=== PATIENT | male | born 1985 | race Caucasian/White ===

== ENCOUNTER 2023-05-28 12:01 | Inpatient (IN) | payer MEDICAID ==
[~2023-05-28] VITALS: Ht 190.5 cm; Wt 160.2 kg
[~2023-05-28 12:01] MED LIST: AMOCLA875 PO; CIPR500 PO; CLIN300 PO; CYCL10 PO; DIPATR PO; HYDACE5 PO; HYDACE5325 PO; INDO50 PO; LISI20 PO; NAPR250 PO; NAPR500 PO; PREG75; PROM25 PO; RXCYCL10 PO; RXHYDACE PO; RXHYDMOR2 PO; RXTRAM50 PO; Roxicodone5 MG PO; TRAM50 PO
[2023-05-28 12:31] LABS: BASOPHILS ABSOLUTE AUTO 0.03 K/mm3 (0.00-0.23); BASOPHILS PERCENT AUTO 0 % (0-2); EOSINOPHILS ABSOLUTE AUTO 0.15 K/mm3 (0.00-0.68); EOSINOPHILS PERCENT AUTO 2 % (0-6); Hematocrit 42.1 % (37.0-53.0); Hemoglobin 15.1 g/dL (13.5-17.5); IMMATURE GRAN ABSOLUTE AUTO 0.02 K/mm3 (0.00-0.10); IMMATURE GRAN PERCENT AUTO 0 % (0-1); LYMPHOCYTES ABSOLUTE AUTO 2.08 K/mm3 (0.84-5.20); LYMPHOCYTES PERCENT AUTO 28 % (21-46); MONOCYTES ABSOLUTE AUTO 0.42 K/mm3 (0.16-1.47); MONOCYTES PERCENT AUTO 6 % (4-13); Mean Corpuscular HGB 29.5 pg (26.0-34.0); Mean Corpuscular HGB Conc 35.9 g/dL (31.5-36.5); Mean Corpuscular Volume 82 fL (80-100); Mean Platelet Volume 11.4 fL (9.1-12.4); NEUTROPHILS ABSOLUTE AUTO 4.67 K/mm3 (1.96-9.15); NEUTROPHILS PERCENT AUTO 63 % (41-73); Platelet Count 279 K/mm3 (150-400); RDW Coefficient Variation 13.1 % (11.7-14.2); RDW Standard Deviation 39.4 fL (35.1-46.3); Red Blood Cell Count 5.11 M/mm3 (4.30-5.90); White Blood Cell Count 7.37 K/mm3 (4.00-11.30)
[2023-05-28 12:43] LABS: Albumin, Blood 3.7 g/dL (3.4-5.0); Bilirubin, Total 0.9 mg/dL (0.1-1.0); Bun/Creatinine Ratio 9.2 (12.0-20.0); Calcium, Blood 9.4 mg/dL (8.5-10.1); Creatinine, Blood 0.87 mg/dL (0.60-1.20); Globulin, Blood 3.6 g/dL (2.2-4.0); Potassium, Blood 3.5 mmol/L (3.5-5.5); Total Protein, Blood 7.3 g/dL (6.4-8.2)
[2023-05-28 18:00] VITALS: BP 167/95
--- NOTE | 2023-05-28 19:40 | NUR ---
PT ARRIVED TO UNIT AT APROX 1800 FROM ER. PT A/O, INDEPENDENT. C/O STABBING PAIN TO UMBILIBUS AND LOWER ABD, MEDCIATED WITH 1MG DILAUDID. C/O NAUSEA MEDICATED WITH 4MG ZOFRAN. ORDER FROM DR LUCAS FOR LR 125ML/HR. CONTINUE CLEAR LIQUIDS AND ABX.
[2023-05-28 20:56] VITALS: BP 122/85
--- NOTE | 2023-05-29 01:43 | NUR ---
LATE ENTRY. AT 2145 ON 05/28/2023 PT REPORTED FEELING "HOT". SKIN WAS NOT FLUSHED AND PATIENT WAS NOT DIAPHORETIC. CHECKED TEMPERATURE WHICH WAS AFEBRILE. REMOVED BLANKETS, AND PROVIDED PT A FAN. WHEN RECHECKED PT VERBALIZED FEELING "COMFORTABLE" IN REGARDS TO TEMPERATURE.
[2023-05-29 05:17] LABS: BASOPHILS ABSOLUTE AUTO 0.01 K/mm3 (0.00-0.23); BASOPHILS PERCENT AUTO 0 % (0-2); EOSINOPHILS ABSOLUTE AUTO 0.17 K/mm3 (0.00-0.68); EOSINOPHILS PERCENT AUTO 3 % (0-6); Hematocrit 38.4 % (37.0-53.0); Hemoglobin 13.5 g/dL (13.5-17.5); IMMATURE GRAN ABSOLUTE AUTO 0.01 K/mm3 (0.00-0.10); IMMATURE GRAN PERCENT AUTO 0 % (0-1); LYMPHOCYTES PERCENT AUTO 25 % (21-46); MONOCYTES ABSOLUTE AUTO 0.45 K/mm3 (0.16-1.47); MONOCYTES PERCENT AUTO 7 % (4-13); Mean Corpuscular HGB 29.8 pg (26.0-34.0); Mean Corpuscular HGB Conc 35.2 g/dL (31.5-36.5); Mean Corpuscular Volume 85 fL (80-100); Mean Platelet Volume 11.5 fL (9.1-12.4); NEUTROPHILS ABSOLUTE AUTO 4.05 K/mm3 (1.96-9.15); NEUTROPHILS PERCENT AUTO 64 % (41-73); Platelet Count 222 K/mm3 (150-400); RDW Standard Deviation 40.3 fL (35.1-46.3); Red Blood Cell Count 4.53 M/mm3 (4.30-5.90); White Blood Cell Count 6.29 K/mm3 (4.00-11.30)
[2023-05-29 05:25] VITALS: BP 124/66
[2023-05-29 05:37] LABS: Bun/Creatinine Ratio 11.3 (12.0-20.0); Calcium, Blood 8.5 mg/dL (8.5-10.1); Creatinine, Blood 0.98 mg/dL (0.60-1.20); Potassium, Blood 3.5 mmol/L (3.5-5.5)
--- NOTE | 2023-05-29 07:22 | NUR ---
SHIFT SUMMARY NOC. PT WITH NON SURGICAL DIVERTICULITIS. PT A/O X4 AND INDEPENDENT IN THE ROOM. PT VOIDING DARK URINE THIS SHIFT. FLUIDS RUNNING. PT MEDICATED FOR NAUSEA AND ABDOMINAL PAIN WITH SOME RELIEF. ORDER FOR PAIN MEDICATION WAS CHANGED FROM Q4 TO Q2 HOURS, THIS HAS HELPED IMPROVE COMFORT. PT CALLS APPROPRIATLY.
[2023-05-29 07:44] VITALS: BP 129/62
--- NOTE | 2023-05-29 14:08 | NUR ---
DR. LUCAS IN ROOM AT ABOUT 1130, PT OK TO HAVE CLEAR LIQ. WILL CONTINUE WITH PAIN MANAGEMENT AND PLAN OF CARE, SEE EMAR.
[2023-05-29 14:59] VITALS: BP 132/72
--- NOTE | 2023-05-29 16:08 | NUR ---
SUMMARY: PT ADMITTED FOR ACUTE DIVERTICULITIS. A/O, VSS. PT CONTINUES TO HAVE INTERMITTANT NAUSEA, NO EMESIS. PAIN IS CONSTANT AT ABD. MEDICATED PER EMAR. PT REPORTS THAT TORADOL AND DILAUDID HAVE HELPED. PT REPORTS FEELING MORE NAUSEATED AFTER THE IV ANTIBIOTICS START. DR. LANE MADE AWARE. PT UP TO WALK IN THE HALLS X2, INDEPENDENT IN ROOM AND VOIDING. TOLERATING SMALL AMT CLEAR LIQ. NO ACUTE CONCERNS AT THIS TIME
[2023-05-29 20:15] VITALS: BP 134/67
[2023-05-30 02:01] VITALS: BP 113/67
[2023-05-30 04:44] LABS: BASOPHILS ABSOLUTE AUTO 0.02 K/mm3 (0.00-0.23); BASOPHILS PERCENT AUTO 0 % (0-2); EOSINOPHILS ABSOLUTE AUTO 0.22 K/mm3 (0.00-0.68); EOSINOPHILS PERCENT AUTO 5 % (0-6); Hematocrit 36.4 % (37.0-53.0); Hemoglobin 12.7 g/dL (13.5-17.5); IMMATURE GRAN PERCENT AUTO 0 % (0-1); LYMPHOCYTES ABSOLUTE AUTO 1.72 K/mm3 (0.84-5.20); LYMPHOCYTES PERCENT AUTO 36 % (21-46); MONOCYTES PERCENT AUTO 8 % (4-13); Mean Corpuscular HGB 29.5 pg (26.0-34.0); Mean Corpuscular HGB Conc 34.9 g/dL (31.5-36.5); Mean Corpuscular Volume 85 fL (80-100); Mean Platelet Volume 11.5 fL (9.1-12.4); NEUTROPHILS ABSOLUTE AUTO 2.39 K/mm3 (1.96-9.15); NEUTROPHILS PERCENT AUTO 50 % (41-73); Platelet Count 193 K/mm3 (150-400); RDW Coefficient Variation 12.8 % (11.7-14.2); RDW Standard Deviation 39.2 fL (35.1-46.3); Red Blood Cell Count 4.31 M/mm3 (4.30-5.90); White Blood Cell Count 4.75 K/mm3 (4.00-11.30)
[2023-05-30 05:08] LABS: Calcium, Blood 8.6 mg/dL (8.5-10.1); Creatinine, Blood 0.9 mg/dL (0.60-1.20); Potassium, Blood 3.4 mmol/L (3.5-5.5)
--- NOTE | 2023-05-30 06:06 | NUR ---
SHIFT SUMMARY PT HAS RESTED OFF AND ON T/O THE NIGHT. PT STILL HAVING INTERMITTENT NAUSEA AND ONE EPISODE OF EMESIS THIS SHIFT. INTERMITTENT ABD PAIN. PT REPORTS THAT HE IS PASSING GAS, BUT STILL HAS NOT HAD A BM. BOWEL CARE STARTED. PT HAS BEEN INDEPENDENT IN THE ROOM. HE HAS BEEN UP AND AMBULATING IN THE HALLWAY. PT MEDICATED FOR PAIN AND NAUSEA PRN. BED IN LOWEST POSITION, CALL LIGHT WITHIN REACH.
[2023-05-30 07:19] LABS: Phosphorus, Blood 3.4 mg/dL (2.5-4.9)
[2023-05-30 07:24] VITALS: BP 119/75
[2023-05-30 15:01] VITALS: BP 123/71
--- NOTE | 2023-05-30 16:07 | NUR ---
TEMP PT REPORTED CHILLS/FREEZING FEELING. TEMP WAS 99.3. ADMINISTERED TORADOL PER ORDERS FOR PAIN/FEVER. RECHECKED AND TEMPORAL TEMP WAS 100.0. PT REPORTED HAD BM AND PAIN IMPROVED FROM 9 TO 7. REPORTED NO LONGER "FREEZING" OR HAVING CHILLS. NOTIFIED DR LUCAS WHO INSTRUCTED TO GIVE TYLENOL PER ORDERS AND INSTRUCT ON USE OF IS, OOB AND UP TO CHAIR. ADMINISTERED TYLENOL. INSTRUCTED PT ON IS USE, WHICH WAS DEMONSTRATED AND PT VERBALIZED UNDERSTANDING FOR NEED TO BE OOB. INDEPENDENT IN ROOM. PT STATED TOLERATING CLEARS.
--- NOTE | 2023-05-30 17:06 | NUR ---
SUMMARY PT HAD TEMP THIS AFTERNOON. MEDICATED PER ORDERS FOR FEVER. TEMP NOW 99.0. MEDICATED PT PER ORDERS T/O SHIFT FOR PAIN. ALSO MEDICATED ONCE THIS SHIFT FOR NAUSEA. PT REPORTED HAD TWO BMS THIS AFTERNOON. ENCOURAGED PT TO BE OOB AND USE IS; PT DID BOTH. ENCOURAGED PT TO USE IS HOURLY WHILE AWAKE. PT TOLERATING CLEAR LIQUIDS. CALL LIGHT IN REACH.
[2023-05-30 19:20] VITALS: BP 140/72
[2023-05-31 02:48] VITALS: BP 126/63
--- NOTE | 2023-05-31 02:59 | NUR ---
SHIFT SUMMARY PT HAS RESTED OFF AND ON T/O THE LIGHT. PT APPEARS TO HAVE MORE FATIGUE THIS SHIFT. PT REPORTS TO LACTATION NURSE JENNIE THAT THE FEVER HE HAD DURING DAYSHIFT WIPED HIM OUT. PT STILL HAVING INTERMITTENT NAUSEA WITH VOMITTING. ONE EPISODE OF EMESIS THIS SHIFT. ZOFRAN CHANGED FROM Q6HR TO Q4HR TO BETTER TREAT SYMPTOMS. PT REPORTS 5 BOWEL MOVEMENTS SINCE STARTING BOWEL CARE. INTERMITTENT ABD PAIN CONTINUES, PAIN MEDS PER EMAR. BED IN LOWEST POSITION, CALL LIGHT WITHIN REACH.
[2023-05-31 04:14] LABS: BASOPHILS ABSOLUTE AUTO 0.01 K/mm3 (0.00-0.23); BASOPHILS PERCENT AUTO 0 % (0-2); EOSINOPHILS ABSOLUTE AUTO 0.02 K/mm3 (0.00-0.68); EOSINOPHILS PERCENT AUTO 0 % (0-6); Hematocrit 36.3 % (37.0-53.0); Hemoglobin 12.6 g/dL (13.5-17.5); IMMATURE GRAN ABSOLUTE AUTO 0.01 K/mm3 (0.00-0.10); IMMATURE GRAN PERCENT AUTO 0 % (0-1); LYMPHOCYTES PERCENT AUTO 12 % (21-46); MONOCYTES ABSOLUTE AUTO 0.53 K/mm3 (0.16-1.47); MONOCYTES PERCENT AUTO 11 % (4-13); Mean Corpuscular HGB 29.4 pg (26.0-34.0); Mean Corpuscular HGB Conc 34.7 g/dL (31.5-36.5); Mean Corpuscular Volume 85 fL (80-100); Mean Platelet Volume 11.5 fL (9.1-12.4); NEUTROPHILS ABSOLUTE AUTO 3.89 K/mm3 (1.96-9.15); NEUTROPHILS PERCENT AUTO 77 % (41-73); Platelet Count 180 K/mm3 (150-400); RDW Coefficient Variation 12.7 % (11.7-14.2); RDW Standard Deviation 39.4 fL (35.1-46.3); Red Blood Cell Count 4.28 M/mm3 (4.30-5.90); White Blood Cell Count 5.06 K/mm3 (4.00-11.30)
[2023-05-31 04:33] LABS: Albumin, Blood 3.1 g/dL (3.4-5.0); Anion Gap 5 mmol/L (6-16); Blood Urea Nitrogen 8 mg/dL (8-24); Bun/Creatinine Ratio 8.1 (12.0-20.0); CO2, Blood 25 mmol/L (21-32); Calcium, Blood 8.6 mg/dL (8.5-10.1); Chloride, Blood 106 mmol/L (98-108); Creatinine, Blood 0.99 mg/dL (0.60-1.20); Glomerular Filtration Rate 100 (60-); Glucose, Blood 102 mg/dL (70-99); Phosphorus, Blood 2.9 mg/dL (2.5-4.9); Potassium, Blood 3.6 mmol/L (3.5-5.5); Sodium, Blood 136 mmol/L (136-145)
[2023-05-31 07:22] VITALS: BP 130/68
--- NOTE | 2023-05-31 11:15 | NUR ---
STARTED PO CONTRAST.
--- NOTE | 2023-05-31 11:45 | NUR ---
NOTIFIED LOCOMOTIVE OPERATOR HELPER PT COMPLETED CONTRAST. PLAN FOR CT AT 1430.
[2023-05-31 14:42] VITALS: BP 127/66
--- NOTE | 2023-05-31 15:11 | NUR ---
PT TO CT.
--- NOTE | 2023-05-31 15:31 | NUR ---
BACK FROM CT.
--- NOTE | 2023-05-31 17:09 | NUR ---
SUMMARY NO ACUTE CHANGES T/O SHIFT. REPEAT CT PERFORMED THIS AFTERNOON, DR LUCAS DISCUSSED WITH PT. NO NEW ORDERS AT THIS TIME. PT INDEPENT IN ROOM, SHOWERED AND AMBULATED IN [place]. CALL LIGHT IN REACH.
[2023-05-31 19:26] VITALS: BP 137/78
[2023-06-01 03:07] VITALS: BP 117/59
--- NOTE | 2023-06-01 06:10 | NUR ---
SUMMARY PT TOLERATING SOME CLEAR LIQ.AMB IN HALLS TONIGHT.
[2023-06-01 10:00] VITALS: BP 127/83
[2023-06-01 15:55] VITALS: BP 118/61
--- NOTE | 2023-06-01 19:32 | NUR ---
PT HAS BEEN STABLE THIS SHIFT. PT CONT TO REPORT HIGH LEVELS OF PAIN. MEDICATING WITH NORCO AND TORODOL NEEDED. TOLERATING SMALL AMTS FULL LIQUIDS. NAUSEA X2 THIS SHIFT, ZOFRAN EFFECTIVE. NO EMESIS. PT VOIDING WELL. INDEP IN ROOM. HAVING DIARRHEA. IV FLUIDS INFUSING PER ORDERS. USES CALL LIGHT APPROPRIATELY NEEDED.
[2023-06-01 20:00] VITALS: BP 132/75
[2023-06-02 04:01] VITALS: BP 127/77
--- NOTE | 2023-06-02 04:31 | NUR ---
SHIFT SUMMARY NO ACUTE CHANGES THIS SHIFT. PT RESTED WELL. ABD REMAINS FIRM AND DISTENDED. PT REPORTS FLATUS AND LOOSE STOOLS. 1 NORCO/TYLENOL/TORADOL FOR PAIN MANAGEMENT. IVF + ABX PER ORDERS. NAUSEA X1 WITH NO EMESIS. INDEP TO RESTROOM. CALL LIGHT WITHIN REACH.
[2023-06-02 08:02] VITALS: BP 133/77
--- NOTE | 2023-06-02 15:00 | NUR ---
SHIFT SUMMARY: DIVERTICULITIS PATIENT IS A&OX4. VS ARE WNL AND IS ON RA. PAIN IS MANAGED WITH PO NORCO AND NAPROXEN. PATIENT STATED THIS MORNING "I'M FEELING A LOT BETTER TODAY". HIS IV ABX WERE SWITCHED TO PO AND IS TOLERATING THEM WELL. HE IS INDEP. IN THE ROOM. HE IS TOLERATING HIS DIET AND HAS DENIED NAUSEA OR VOMITING THROUGHOUT THIS SHIFT. HE IS VOIDING AND HAVING BMS. PATIENT IS LAYING IN BED ASLEEP WITH CALL LIGHT IN REACH.
[2023-06-02 16:12] VITALS: BP 131/69
[2023-06-02 19:06] VITALS: BP 134/73
--- NOTE | 2023-06-02 20:48 | NUR ---
EMAR PT GIVEN 1 NORCO, WITH 8, AUGMENTIN AND PROBIOTIC PILL THIS EVENING. [facility] AT THIS TIME
[2023-06-03 04:19] VITALS: BP 127/80
--- NOTE | 2023-06-03 04:47 | NUR ---
SHIFT [facility] VSS. PT SLEPT WELL T/O THE NIGHT. MEDICATED FOR PAIN WITH NRCO AND NAPROXEN WITH TOLLERABLE RELIEF. PT TOLLERATING PO INTAKE W/O N/V. PT REPORTS PASSING FLATTUS BUT NO STOOL TONIGHT. VOIDING W/O DIFFICULTY. NO ACUTE EVENTS NOTED. PLAN TO D/C TODAY.
[2023-06-03 07:24] VITALS: BP 133/87
[2023-06-03] MEDS ORDERED: AMOCLA875 PO (09:21)
[2023-06-03] MEDS ORDERED: NAPR500 PO (09:22)
[2023-06-03] MEDS ORDERED: MIRALAX17 GM PO (09:22)
[2023-06-03] MEDS ORDERED: Norco 5-325 Ta1 EACH PO (09:22)
[2023-06-03] MEDS ORDERED: LISI5 PO (09:22)
[2023-06-03] MEDS ORDERED: VISBIOME 112.51 EACH PO (09:23)
--- NOTE | 2023-06-03 09:38 | NUR ---
DISCHARGE NOTE: PATIENT WAS EDUCATED ON DISCHARGE INSTRUCTIONS. HE VERBALIZED UNDERSTANDING OF INSTRUCTIONS AND HAD NO FURTHER QUESTIONS AT THIS TIME. HIS HARD PERSCRIPTION WAS PLACED IN HIS INSTRUCTIONS FOLDER. PATIENTS OTHER PERSCRITPIONS WERE FAXED TO [facility]. IV WAS TAKEN OUT AND WNL. PAIN IS MANAGED WITH ORAL PAIN MEDICATIONS. HE IS TOLERATING PO INTAKE AND IS VOIDING/HAVING BMS. HE IS DRESSED AND HAS PERSONAL ITEMS IN THE ROOM GATHERED. HE REFUSED TO BE WHEELCHAIRED OUT AND IS WALKING OUT TO MEET HIS MOM OUTSIDE TO TAKE HIM HOME.
== END 2023-06-03 09:41 | disposition home or self-care (01) | DRG 392 ==
LOC: ER 12:01 → SURS 15:45
PROVIDERS: Internal Medicine; Physician Assistant; ADMIT Internal Medicine
DX: K57.32 Diverticulitis of large intestine without perforation or abscess without bleeding (principal); Z68.41 Body mass index [BMI] 40.0-44.9, adult; I10 Essential (primary) hypertension; E87.6 Hypokalemia; D64.9 Anemia, unspecified; M10.9 Gout, unspecified; M54.9 Dorsalgia, unspecified; G89.29 Other chronic pain; K76.0 Fatty (change of) liver, not elsewhere classified; K58.9 Irritable bowel syndrome, unspecified; E66.01 Morbid (severe) obesity due to excess calories; R42 Dizziness and giddiness; R73.9 Hyperglycemia, unspecified; E87.5 Hyperkalemia; Z79.899 Other long term (current) drug therapy; Z79.2 Long term (current) use of antibiotics; Z79.891 Long term (current) use of opiate analgesic; Z90.49 Acquired absence of other specified parts of digestive tract; Z98.890 Other specified postprocedural states; Z87.891 Personal history of nicotine dependence
CPT/HCPCS: 36415; 74177; 80048; 80053; 80069; 83036; 83735; 84100; 85025; 96365-59; 96375; 99285-25; A9270; J1170; J1885; J2405; J2543; J3480; J7030; J7050; J7120; Q9967

== ENCOUNTER 2023-07-31 07:37 | Day surgery (SDC) | payer OTHER ==
[~2023-07-31] VITALS: Ht 188 cm; Wt 158.4 kg
[~2023-07-31 07:37] MED LIST changes: +LISI5 PO; +MIRALAX17 GM PO; +Norco 5-325 Ta1 EACH PO; +VISBIOME 112.51 EACH PO
[2023-07-31] MEDS ORDERED: Robaxin750 MG (08:09)
[2023-07-31 11:07] VITALS: BP 98/76
== END 2023-07-31 10:55 | disposition home or self-care (01) ==
LOC: ORSCSDS 07:37
PROVIDERS: Surgery
PROC: 0DBN8ZX Excision of Sigmoid Colon, Via Natural or Artificial Opening Endoscopic, Diagnostic (ICD-10-PCS; principal; 2023-07-31 09:15)
DX: K57.32 Diverticulitis of large intestine without perforation or abscess without bleeding (principal); Z86.010 Personal history of colon polyps; D12.5 Benign neoplasm of sigmoid colon; G47.33 Obstructive sleep apnea (adult) (pediatric); K21.9 Gastro-esophageal reflux disease without esophagitis; E66.01 Morbid (severe) obesity due to excess calories; Z68.41 Body mass index [BMI] 40.0-44.9, adult; F17.290 Nicotine dependence, other tobacco product, uncomplicated; Z79.899 Other long term (current) drug therapy
CPT/HCPCS: 88305; J2250; J2405; J2704; J7120

== ENCOUNTER 2024-06-07 22:16 | Emergency (ER) | payer OTHER ==
[~2024-06-07] VITALS: Ht 188 cm; Wt 181.4 kg
[~2024-06-07 22:16] MED LIST changes: +BUSPIRONE HCL7.5 M1; +BUSPIRONE HCL7.5 M6; +GABA300; +Robaxin750 MG
[2024-06-07] MEDS ORDERED: Ondansetron HCl 2 MG / ML 2ML Vial IV PRN (22:40)
[2024-06-07 22:45] LABS: BASOPHILS ABSOLUTE AUTO 0.04 K/mm3 (0.00-0.23); BASOPHILS PERCENT AUTO 0 % (0-2); EOSINOPHILS ABSOLUTE AUTO 0.15 K/mm3 (0.00-0.68); EOSINOPHILS PERCENT AUTO 2 % (0-6); Hematocrit 43.7 % (37.0-53.0); Hemoglobin 14.6 g/dL (13.5-17.5); IMMATURE GRAN ABSOLUTE AUTO 0.06 K/mm3 (0.00-0.10); IMMATURE GRAN PERCENT AUTO 1 % (0-1); LYMPHOCYTES ABSOLUTE AUTO 2.64 K/mm3 (0.84-5.20); LYMPHOCYTES PERCENT AUTO 29 % (21-46); MONOCYTES ABSOLUTE AUTO 0.52 K/mm3 (0.16-1.47); MONOCYTES PERCENT AUTO 6 % (4-13); Mean Corpuscular HGB 28.6 pg (26.0-34.0); Mean Corpuscular HGB Conc 33.4 g/dL (31.5-36.5); Mean Corpuscular Volume 86 fL (80-100); Mean Platelet Volume 11.2 fL (9.1-12.4); NEUTROPHILS PERCENT AUTO 63 % (41-73); Platelet Count 336 K/mm3 (150-400); RDW Standard Deviation 40.3 fL (35.1-46.3); White Blood Cell Count 9.11 K/mm3 (4.00-11.30)
[2024-06-07 23:01] LABS: Albumin, Blood 3.8 g/dL (3.4-5.0); Bilirubin, Total 0.6 mg/dL (0.1-1.0); Bun/Creatinine Ratio 17.1 (12.0-20.0); Calcium, Blood 9.5 mg/dL (8.5-10.1); Globulin, Blood 3.7 g/dL (2.2-4.0); Potassium, Blood 3.5 mmol/L (3.5-5.5); Total Protein, Blood 7.5 g/dL (6.4-8.2)
[2024-06-07] MEDS ORDERED: Lactated Ringer's 1,000 ML IV ONE (23:10)
[2024-06-07] MEDS ORDERED: Ondansetron HCl 2 MG / ML 2ML Vial IV ONE (23:10)
[2024-06-07] MEDS ORDERED: Morphine Sulfate 4 MG/1 ML Injection IV ONE (23:10)
[2024-06-08] MEDS ORDERED: DiphenhydrAMINE HCl 50 MG/ML 1ML Vial IV ONE (01:35)
[2024-06-08] MEDS ORDERED: Prochlorperazine Edisylate 10 mg Vial IV ONE (01:35)
[2024-06-08 01:53] LABS: Source, Urine Clean Catch
[2024-06-08 01:57] LABS: Appearance, Urine Clear (Clear); Bilirubin, Urine Neg (Neg); Blood, Urine Neg (Neg); Color, Urine Yellow (P-Yellow); Glucose Qualitative, Urine Neg (Neg); Ketones, Urine Neg (Neg); Leukocyte Esterase, Urine Neg (Neg); Nitrite, Urine Neg (Neg); Protein, Urine Neg (Neg); Urobilinogen, Urine NORM (Normal)
[2024-06-08] MEDS ORDERED: RX Prepack 2 Tabs Ondansetron ODT 4MG UD ONE (02:50)
[2024-06-08 02:58] VITALS: BP 118/70
[2024-06-08] MEDS ORDERED: Ondansetron HCl 2 MG / ML 2ML Vial IV ONE (22:40)
== END 2024-06-08 02:57 | disposition home or self-care (01) ==
LOC: ER 22:16
PROVIDERS: Emergency Medicine
DX: R10.31 Right lower quadrant pain (principal); R11.2 Nausea with vomiting, unspecified; I10 Essential (primary) hypertension; Z87.19 Personal history of other diseases of the digestive system; Z79.899 Other long term (current) drug therapy
CPT/HCPCS: 74177; 80053; 81003; 83605; 83690; 84484; 85025; 86850; 86900; 86901; 96374-59; 96375; 99284-25; A9270; J0780; J1200; J2270; J2405; J7120; Q9967

== ENCOUNTER 2024-06-24 08:29 | Inpatient (IN) | payer OTHER ==
[~2024-06-24] VITALS: Ht 188 cm; Wt 163.8 kg
[2024-06-24] MEDS ORDERED: Morphine Sulfate 4 MG/1 ML Injection IV ONE ×2 (09:05→10:25)
[2024-06-24] MEDS ORDERED: Ondansetron HCl 2 MG / ML 2ML Vial ONE (09:24)
[2024-06-24] MEDS ORDERED: Ondansetron HCl 2 MG / ML 2ML Vial IV ONE (09:35)
[2024-06-24 09:41] LABS: BASOPHILS ABSOLUTE AUTO 0.03 K/mm3 (0.00-0.23); BASOPHILS PERCENT AUTO 0 % (0-2); EOSINOPHILS ABSOLUTE AUTO 0.11 K/mm3 (0.00-0.68); EOSINOPHILS PERCENT AUTO 1 % (0-6); Hematocrit 41.1 % (37.0-53.0); Hemoglobin 14.2 g/dL (13.5-17.5); IMMATURE GRAN ABSOLUTE AUTO 0.03 K/mm3 (0.00-0.10); IMMATURE GRAN PERCENT AUTO 0 % (0-1); LYMPHOCYTES ABSOLUTE AUTO 1.62 K/mm3 (0.84-5.20); LYMPHOCYTES PERCENT AUTO 17 % (21-46); MONOCYTES ABSOLUTE AUTO 0.63 K/mm3 (0.16-1.47); MONOCYTES PERCENT AUTO 7 % (4-13); Mean Corpuscular HGB 28.9 pg (26.0-34.0); Mean Corpuscular HGB Conc 34.5 g/dL (31.5-36.5); Mean Corpuscular Volume 84 fL (80-100); Mean Platelet Volume 11.4 fL (9.1-12.4); NEUTROPHILS ABSOLUTE AUTO 6.89 K/mm3 (1.96-9.15); NEUTROPHILS PERCENT AUTO 74 % (41-73); Platelet Count 292 K/mm3 (150-400); RDW Coefficient Variation 12.8 % (11.7-14.2); RDW Standard Deviation 39.1 fL (35.1-46.3); Red Blood Cell Count 4.91 M/mm3 (4.30-5.90); White Blood Cell Count 9.31 K/mm3 (4.00-11.30)
[2024-06-24 09:59] LABS: Albumin, Blood 3.8 g/dL (3.4-5.0); Albumin/Globulin Ratio 1.1 (0.8-1.8); Bilirubin, Total 0.9 mg/dL (0.1-1.0); Bun/Creatinine Ratio 16.9 (12.0-20.0); Calcium, Blood 9.6 mg/dL (8.5-10.1); Creatinine, Blood 0.83 mg/dL (0.60-1.20); Globulin, Blood 3.4 g/dL (2.2-4.0); Potassium, Blood 3.7 mmol/L (3.5-5.5); Total Protein, Blood 7.2 g/dL (6.4-8.2)
[2024-06-24] MEDS ORDERED: Prochlorperazine Edisylate 10 mg Vial IV ONE (10:25)
[2024-06-24] MEDS ORDERED: MetroNIDAZOLE 500MG/NS 100 ml 100 ML IV ONE (12:05)
[2024-06-24] MEDS ORDERED: CefTRIAXone Sodium 1,000 MG in NS 100 ML IV ONE (12:05)
[2024-06-24] MEDS ORDERED: Acetaminophen 325 MG TABLET PO PRN (12:35)
[2024-06-24] MEDS ORDERED: Lactated Ringer's 1,000 ML IV SCH (12:40)
[2024-06-24] MEDS ORDERED: Ondansetron 4 MG TAB PO PRN (12:40)
[2024-06-24] MEDS ORDERED: FLU VACC TS2024-25(6MOS UP)/PF 45 MCG/0.5 ML SYRINGE IM SCH (12:40)
[2024-06-24] MEDS ORDERED: OxyCODONE HCL 5 MG TAB PO PRN (12:40)
[2024-06-24] MEDS ORDERED: Ketorolac Tromethamine 30mg Vial IV PRN (13:35)
[2024-06-24] MEDS ORDERED: Gabapentin 300 MG Cap PO SCH (14:00)
[2024-06-24 14:57] VITALS: BP 120/80
[2024-06-24] MEDS ORDERED: Budeprion Xl300 MG PO (14:58)
--- NOTE | 2024-06-24 16:19 | NUR ---
ADMISSION NOTE: PATIENT ARRIVES TO ROOM VIA WHEECHAIR AT 1440 FROM ER FOR DX'S OF DIVERTICULITIS TO LARGE INTESTINE. ADMISSION, MEDRIC, SKIN ASSESSMENT c 2 RN'S VERIFIED COMPLETED. PATIENT ORIENTATED TO ROOM AND CALL SYSTEM. PATIENT A/OX4, ANSWER TO QUESTIONS APPROPRIATELY AND ABLE TO MAKE NEEDS KNOWN. PATIENT REPORTS PAIN 8-9/10 TO LOWER ABDOMEN, MEDICATED FOR PAIN PER EMAR c GOOD EFFECT. PATIENT DENIES N/V, SOB AND DIZZINESS. PATIENT ON CL DIET. VITAL SIGNS REVIEWED. PATIENT HAS PIV TO R HAND INFUSING LR AT 75 MLS/HR. PATIENT RESTING IN BED AT THIS TIME c CALL LIGHT IN REACH.
[2024-06-24] MEDS ORDERED: Methocarbamol 500 MG Tab PO PRN (17:40)
[2024-06-24] MEDS ORDERED: MetroNIDAZOLE 500MG/NS 100 ml 100 ML IV SCH (18:00)
[2024-06-24 19:45] VITALS: BP 140/64
[2024-06-24] MEDS ORDERED: Sennosides 8.6 MG Tab PO SCH (21:00)
[2024-06-24] MEDS ORDERED: Lactobacil 2-S.Thermo-Bifido 1 1 Cap PO SCH (21:00)
[2024-06-25 04:42] VITALS: BP 132/68
--- NOTE | 2024-06-25 05:15 | NUR ---
SHIFT SUMMARY PATIENT IS ALERT AND ORIENTED. PATIENT HAS HAD NO ACUTE EVENTS THIS SHIFT. VITAL SIGNS REVIEWED. PATIENT HAS HAD PAIN THIS SHIFT AND MEDICATED PER EMAR. PATIENT HAS NO COMPLAINTS OF SOB, NAUSEA OR VOMITTING THIS SHIFT. PATIENT HAS BEEN TOLERATING CLEAR LIQUIDS THIS SHIFT. PATIENT HAS BEEN IND THIS SHIFT. BED IN LOCKED AND LOWEST POSITION.
[2024-06-25 05:41] LABS: BASOPHILS ABSOLUTE AUTO 0.03 K/mm3 (0.00-0.23); BASOPHILS PERCENT AUTO 0 % (0-2); EOSINOPHILS ABSOLUTE AUTO 0.13 K/mm3 (0.00-0.68); EOSINOPHILS PERCENT AUTO 2 % (0-6); Hematocrit 38.2 % (37.0-53.0); Hemoglobin 12.9 g/dL (13.5-17.5); IMMATURE GRAN ABSOLUTE AUTO 0.03 K/mm3 (0.00-0.10); IMMATURE GRAN PERCENT AUTO 0 % (0-1); LYMPHOCYTES ABSOLUTE AUTO 1.67 K/mm3 (0.84-5.20); LYMPHOCYTES PERCENT AUTO 22 % (21-46); MONOCYTES ABSOLUTE AUTO 0.59 K/mm3 (0.16-1.47); MONOCYTES PERCENT AUTO 8 % (4-13); Mean Corpuscular HGB 29.1 pg (26.0-34.0); Mean Corpuscular HGB Conc 33.8 g/dL (31.5-36.5); Mean Corpuscular Volume 86 fL (80-100); Mean Platelet Volume 11.4 fL (9.1-12.4); NEUTROPHILS ABSOLUTE AUTO 5.12 K/mm3 (1.96-9.15); NEUTROPHILS PERCENT AUTO 68 % (41-73); Platelet Count 255 K/mm3 (150-400); RDW Coefficient Variation 12.7 % (11.7-14.2); RDW Standard Deviation 39.9 fL (35.1-46.3); Red Blood Cell Count 4.43 M/mm3 (4.30-5.90); White Blood Cell Count 7.57 K/mm3 (4.00-11.30)
[2024-06-25 06:08] LABS: Albumin, Blood 3.3 g/dL (3.4-5.0); Bilirubin, Total 0.9 mg/dL (0.1-1.0); Bun/Creatinine Ratio 12.6 (12.0-20.0); Calcium, Blood 9.1 mg/dL (8.5-10.1); Creatinine, Blood 0.96 mg/dL (0.60-1.20); Globulin, Blood 3.4 g/dL (2.2-4.0); Potassium, Blood 3.8 mmol/L (3.5-5.5); Total Protein, Blood 6.7 g/dL (6.4-8.2)
[2024-06-25 07:27] VITALS: BP 126/56
[2024-06-25] MEDS ORDERED: Lisinopril 5 MG Tab PO SCH (09:00)
[2024-06-25] MEDS ORDERED: Enoxaparin 40 MG/0.4 ML SYR SC SCH (09:00)
[2024-06-25] MEDS ORDERED: BusPIRone HCl 10 MG Tab PO SCH (09:00)
[2024-06-25] MEDS ORDERED: buPROPion HCL 150 MG TAB.SR.12H PO SCH (09:00)
[2024-06-25] MEDS ORDERED: Piperacillin/Tazobactam Sod 4.5 GM in NS 100 ML IV SCH (10:00)
[2024-06-25] MEDS ORDERED: OxyCODONE HCL 5 MG TAB PO ONE (10:00)
[2024-06-25] MEDS ORDERED: NS 250 ML IV PRN (10:05)
[2024-06-25] MEDS ORDERED: OxyCODONE HCL 5 MG TAB PO PRN (10:05)
[2024-06-25] MEDS ORDERED: HYDROmorphone HCl/Pf 1MG SYR IV PRN (10:10)
[2024-06-25] MEDS ORDERED: CefTRIAXone Sodium 1,000 MG in NS 100 ML IV SCH (12:00)
[2024-06-25 15:24] VITALS: BP 153/94
[2024-06-25] MEDS ORDERED: Famotidine 20 MG Tab PO SCH ×2 (18:00→21:00)
--- NOTE | 2024-06-25 18:25 | NUR ---
SHIFT SUMMARY: PATIENT REPORTS A LOT OF PAIN TO HIS LOWER ABDOMEN RIGHT AFTER HAVING HIS CL BREAKFAST. PER PATIENT "I THINK I CHUGGED MY LIQUID SO FAST AND I WAS NOT THINKING." PATIENT MEDICATED FOR PAIN PER EMAR AND EDUCATED TO ATE/DRINK SLOW T/O THE DAY. PATIENT VERBALIZED UNDERSTANDING, STATED "I LEARNED MY LESSON." PATIENT REPORTS NAUSEOUS AND HEARTBURN THIS PM. NOTIFIED DR. JOSHI, RECEIVED ORDER TO GIVE PEPCID 20 MG PO BID. PATIENT MEDICATED FOR NAUSEA AND HEARTBURN c GOOD EFFECT. PATIENT AMBULATED X2 INDEPENDENTLY AROUND THE UNIT THIS SHIFT, TOLERATING WELL. PATIENT SHOWERED AND LINEN CHANGED. PATIENT RECEIVED IV ABX/SCHEDULED MEDS PER EMAR. VITAL SIGNS REVIEWED. CALL LIGHT IN REACH.
[2024-06-25 19:19] VITALS: BP 130/76
--- NOTE | 2024-06-26 03:39 | NUR ---
SUMMARY- PT DISCOMFORT TX PER NOV W/ RELIEF. PT IS AMBULATORY AND VOIDING WELL. PT DRINKING PO FLUIDS WITHOUT ISSUE. PT REMAINS ON CLEAR DIET. PT RESTING COMFORTABLY. CALL LIGHT IN REACH.
[2024-06-26 03:57] VITALS: BP 122/68
[2024-06-26 05:43] LABS: BASOPHILS ABSOLUTE AUTO 0.05 K/mm3 (0.00-0.23); BASOPHILS PERCENT AUTO 1 % (0-2); EOSINOPHILS ABSOLUTE AUTO 0.21 K/mm3 (0.00-0.68); EOSINOPHILS PERCENT AUTO 4 % (0-6); Hematocrit 37.8 % (37.0-53.0); Hemoglobin 12.7 g/dL (13.5-17.5); IMMATURE GRAN ABSOLUTE AUTO 0.03 K/mm3 (0.00-0.10); IMMATURE GRAN PERCENT AUTO 1 % (0-1); LYMPHOCYTES ABSOLUTE AUTO 1.48 K/mm3 (0.84-5.20); LYMPHOCYTES PERCENT AUTO 25 % (21-46); MONOCYTES ABSOLUTE AUTO 0.46 K/mm3 (0.16-1.47); MONOCYTES PERCENT AUTO 8 % (4-13); Mean Corpuscular HGB 28.7 pg (26.0-34.0); Mean Corpuscular HGB Conc 33.6 g/dL (31.5-36.5); Mean Corpuscular Volume 86 fL (80-100); Mean Platelet Volume 11.3 fL (9.1-12.4); NEUTROPHILS ABSOLUTE AUTO 3.75 K/mm3 (1.96-9.15); NEUTROPHILS PERCENT AUTO 63 % (41-73); Platelet Count 254 K/mm3 (150-400); RDW Coefficient Variation 12.6 % (11.7-14.2); RDW Standard Deviation 39.5 fL (35.1-46.3); Red Blood Cell Count 4.42 M/mm3 (4.30-5.90); White Blood Cell Count 5.98 K/mm3 (4.00-11.30)
[2024-06-26 05:59] LABS: Bun/Creatinine Ratio 12.6 (12.0-20.0); Calcium, Blood 9.1 mg/dL (8.5-10.1); Creatinine, Blood 0.88 mg/dL (0.60-1.20); Potassium, Blood 3.3 mmol/L (3.5-5.5)
[2024-06-26 07:50] VITALS: BP 121/58
[2024-06-26] MEDS ORDERED: Potassium Chloride 20 MEQ TabCR PO ONE (09:00)
[2024-06-26] MEDS ORDERED: OxyCODONE HCL 5 MG TAB PO PRN (10:55)
[2024-06-26] MEDS ORDERED: Polyethylene Glycol 3350 17 gm PO PRN (11:00)
[2024-06-26] MEDS ORDERED: Polyethylene Glycol 3350 17 gm PO ONE (11:00)
[2024-06-26 15:16] VITALS: BP 117/60
--- NOTE | 2024-06-26 17:13 | NUR ---
SHIFT SUMMARY: PATIENT A/OX4, PLEASANT AND COOPERATIVE c CARE. PATIENT REPORTS PAIN TO LL ABDOMEN HAS IMPROVED. PATIENT HAS BEEN MEDICATING FOR PAIN PER EMAR T/O SHIFT. PATIENT REQUEST DIET CHANGED TO FL, NOTIFIED DR. ADI kuhn THE REQUEST, RECEIVED ORDER TO START FL. PATIENT TOLERATING FL DIET. PATIENT AMBULATED AROUND THE UNIT X5 THIS SHIFT. PATIENT CONTINENT OF BLADDER AND HAS BEEN VOIDING WITHOUT ANY DIFFICULTIES, NO BM THIS SHIFT. VITAL SIGNS REVIEWED. CALL LIGHT IN REACH.
[2024-06-26 19:26] VITALS: BP 124/70
[2024-06-26] MEDS ORDERED: Sennosides 8.6 MG Tab PO SCH (21:00)
[2024-06-27 03:34] VITALS: BP 121/72
--- NOTE | 2024-06-27 04:54 | NUR ---
SHIFT SUMMARY: MARIBELL IS A&OX4. VSS, NO ACUTE EVENTS THIS SHIFT. HE HAS COMPLAINED OF ABDOMINAL PAIN THAT HAS WORSENED DURING THE SHIFT. PT HAS BEEN MEDICATED PER MAR AND K-PAD GIVEN. HE IS INDEPENDENT IN THE ROOM, REPORTS TOLERATING THE FULL LIQUID DIET AND PASSING GAS. IV TO RIGHT HAND PATENT. HE IS LYING IN BED WITH THE BED IN THE LOWEST POSITION, CALL LIGHT IN REACH. WILL GIVE REPORT TO DAY SHIFT RN.
[2024-06-27 06:51] LABS: BASOPHILS ABSOLUTE AUTO 0.04 K/mm3 (0.00-0.23); BASOPHILS PERCENT AUTO 1 % (0-2); EOSINOPHILS ABSOLUTE AUTO 0.25 K/mm3 (0.00-0.68); EOSINOPHILS PERCENT AUTO 5 % (0-6); Hematocrit 35.7 % (37.0-53.0); Hemoglobin 12.1 g/dL (13.5-17.5); IMMATURE GRAN ABSOLUTE AUTO 0.02 K/mm3 (0.00-0.10); IMMATURE GRAN PERCENT AUTO 0 % (0-1); LYMPHOCYTES ABSOLUTE AUTO 1.57 K/mm3 (0.84-5.20); LYMPHOCYTES PERCENT AUTO 28 % (21-46); MONOCYTES ABSOLUTE AUTO 0.57 K/mm3 (0.16-1.47); MONOCYTES PERCENT AUTO 10 % (4-13); Mean Corpuscular HGB Conc 33.9 g/dL (31.5-36.5); Mean Corpuscular Volume 86 fL (80-100); Mean Platelet Volume 11.3 fL (9.1-12.4); NEUTROPHILS PERCENT AUTO 56 % (41-73); Platelet Count 238 K/mm3 (150-400); RDW Coefficient Variation 12.6 % (11.7-14.2); RDW Standard Deviation 39.3 fL (35.1-46.3); Red Blood Cell Count 4.17 M/mm3 (4.30-5.90); White Blood Cell Count 5.55 K/mm3 (4.00-11.30)
[2024-06-27 07:12] LABS: Bun/Creatinine Ratio 9.7 (12.0-20.0); Calcium, Blood 8.8 mg/dL (8.5-10.1); Creatinine, Blood 0.93 mg/dL (0.60-1.20); Potassium, Blood 3.7 mmol/L (3.5-5.5)
[2024-06-27 07:38] VITALS: BP 113/64
[2024-06-27 15:14] VITALS: BP 126/63
--- NOTE | 2024-06-27 18:36 | NUR ---
SHIFT [facility] PT CON TLEVEL OF CARE IWTH NO ACUTE CHANGES NOTED. PT IS A&O X4 AND INDEPENDENT. PT PLAN IS TO POSSIBLE SWITCH TO PO ABT TOMORROW AND POSSIBLE DC. PT VOICED C/O OF PAIN TO ABD AND WAS TREATED PER EMAR THIS SHIFT.
[2024-06-27 20:19] VITALS: BP 133/71
--- NOTE | 2024-06-28 03:35 | NUR ---
SHIFT SUMMARY: MARIBELL IS A&OX4. VSS, NO ACUTE EVENTS THIS SHIFT. PT REPORTS MULTIPLE BMs THIS SHIFT, STATES OUTPUT HAS TURNED TO DIARRHEA. HE DENIES ANY DIFFICULTY WITH URINATION AND STATES THAT HIS PAIN IS BETTER CONTROLLED. HE IS TOLERATING PO INTAKE WELL AND STATES HE IS READY TO ADVANCE HIS DIET. IV TO LEFT HAND PATENT, PT IS INDEPENDENT IN THE ROOM, AND IS ABLE TO MAKE HIS NEEDS KNOWN. HE WALKS IN THE HALLWAY FREQUENTLY WHEN AWAKE. HE IS LYING IN BED WITH THE CALL LIGHT IN REACH, BED IN LOWEST POSITION. WILL GIVE REPORT TO DAY SHIFT RN.
[2024-06-28 04:34] VITALS: BP 122/62
[2024-06-28 07:43] VITALS: BP 113/58
[2024-06-28] MEDS ORDERED: CEPH500 PO (11:39)
[2024-06-28] MEDS ORDERED: ONDA4 PO (11:39)
[2024-06-28] MEDS ORDERED: SENN187 PO (11:39)
[2024-06-28] MEDS ORDERED: HYDR1TAB94 PO (11:40)
[2024-06-28] MEDS ORDERED: CLIN300 PO (11:40)
--- NOTE | 2024-06-28 12:12 | NUR ---
DISCHARGE SUMMARY PT DISCHARGED TO HOME. PT LEFT ROOM PRIOR TO THIS NOTE ON STEADY GAIT. NO IV IN PLACE AT TIME OF DC. ALL DISCHARGE INTRUCTIONS DISCUSSED. PT AGREES TO FOLLOW UP WITH PCP AND [facility] IN [place] FOR [facility]ERY AND TO TAKE MEDICATIONS PRESCRIBED. ALL QUESTIONS ANSWERED. PT INSISTED ON WALKING OUT FOR DISCHARGE, DID NOT WANT A WHEELCHAIR AND ESCORT OUT TO HIS MOTHER WHO WAS PICKING HIM UP.
== END 2024-06-28 11:56 | disposition home or self-care (01) | DRG 392 ==
LOC: ER 08:29 → MEDS 12:35
PROVIDERS: Emergency Medicine; ADMIT Internal Medicine
DX: K57.32 Diverticulitis of large intestine without perforation or abscess without bleeding (principal); M54.9 Dorsalgia, unspecified; G89.29 Other chronic pain; G43.909 Migraine, unspecified, not intractable, without status migrainosus; D64.9 Anemia, unspecified; K76.0 Fatty (change of) liver, not elsewhere classified; M10.9 Gout, unspecified; Z90.49 Acquired absence of other specified parts of digestive tract; E66.01 Morbid (severe) obesity due to excess calories; Z98.890 Other specified postprocedural states; Z79.811 Long term (current) use of aromatase inhibitors; Z79.899 Other long term (current) drug therapy; F41.8 Other specified anxiety disorders
CPT/HCPCS: 36415; 74177; 80048; 80053; 83880; 85025; 94760; 96365; 96375; 96376; 99285-25; A9270; J0696; J0780; J1170; J1650; J1885; J2270; J2405; J2543; J7050; J7120; Q9967